=== PATIENT | female | born 1930 | race Caucasian/White ===

== ENCOUNTER 2017-02-07 18:54 | Emergency (ER) | payer OTHER ==
[~2017-02-07] VITALS: Ht 152.4 cm; Wt 49.9 kg
--- NOTE | 2017-02-07 19:06 | NUR ---
PT BIB [facility]. PT IS AMBULATORY WITH SLOW GAIT. SPEAKING IN FULL SENTENCES. NAD NOTED. VSS. PER REPORT, PT HAD A SYNCOPAL EPISODE TODAY, S/P CARVING A TURKEY. PT STATES THAT SHE FELT, "LIGHTHEADED, THEN FELT NAUSEATED, WITH VOMITING X 1 [PER FAMILY AT BEDSIDE], PT WAS DIAPHORETIC [PER FAMILY]." PT DENIES HITTING HEAD OF FALLING. PT STATES THAT WHEN SHE FELT "LIGHTHEADED" THAT SHE SAT DOWN AND "PASSED OUT" ON A CHAIR. WCTM PT AT THIS TIME. WAITING FOR MD TO PERFORM MSE.
--- NOTE | 2017-02-07 19:10 | NUR ---
EKG DONE GIVEN TO MD BONILLA
[2017-02-07] MEDS ORDERED: IV NORMAL SALINE 500 ML BAG IV ONE (19:30)
[2017-02-07 19:53] LABS: BASOPHILS # (AUTO) 0.1 K/uL (0.0-0.2); BASOPHILS % (AUTO) 1.3 % (0.0-2.0); EOSINOPHILS # (AUTO) 0.1 K/uL (0.0-0.7); EOSINOPHILS % (AUTO) 1.5 % (0.0-7.0); HEMATOCRIT 38.2 % (37.0-47.0); HEMOGLOBIN 13.1 g/dL (12.0-16.0); LYMPHOCYTES # (AUTO) 1.1 K/uL (0.8-4.8); LYMPHOCYTES % (AUTO) 15.6 % (20.5-51.5); MEAN CORPUSCULAR HEMOGLOBIN 31.9 uug (27.0-31.0); MEAN CORPUSCULAR HGB CONC 34 g/dL (32.0-37.0); MEAN CORPUSCULAR VOLUME 93.4 fL (81.0-99.0); MONOCYTES # (AUTO) 0.7 K/uL (0.1-1.30); MONOCYTES % (AUTO) 10.2 % (0.0-11.0); NEUTROPHILS % (AUTO) 71.4 % (38.5-71.5); PLATELET COUNT (AUTO) 184 K/uL (150-450); RED BLOOD CELL COUNT(AUTO) 4.09 MIL/uL (4.20-5.40); RED CELL DISTRIBUTION WIDTH 11.9 % (11.5-14.5)
[2017-02-07 20:02] LABS: CALCIUM 8.9 mg/dL (8.5-10.1); CREATININE 0.9 mg/dL (0.6-1.3); POTASSIUM 4.5 mmol/L (3.5-5.1)
[2017-02-07 20:08] LABS: ALBUMIN 3.6 g/dL (3.4-5.0); BILIRUBIN,DIRECT 0.1 mg/dL (0.0-0.2); BILIRUBIN,TOTAL 0.3 mg/dL (0.2-1.0); TOTAL PROTEIN, SERUM 6.8 g/dL (6.4-8.2)
--- NOTE | 2017-02-07 21:00 | NUR ---
ALL RESULTS IN, PT W/ STABLE VITALS, NO DIZZINESS NOTED, FAMILY AT BEDSIDE. TALKED TO FAMILY. FOR DISCHARGED , REMAIN IN SR RATE 67-72.SALINE LOCK TAKEN OUT AND DC'D. PT AND FAMILY GIVEN ACI, DISCHARGED AMBULATORY IN STABLE CONDITION.
[2017-02-07 21:30] VITALS: BP 136/67
== END 2017-02-07 21:10 | disposition home or self-care (01) ==
LOC: ER 18:58
DX: R55 Syncope and collapse (principal); I10 Essential (primary) hypertension; I25.2 Old myocardial infarction; E78.00 Pure hypercholesterolemia, unspecified
CPT/HCPCS: 36415; 71010; 80048; 80076; 84484; 85025; 85730; 93005; 99285; A4663; 70030-TC